=== PATIENT | female | born 1960 | race Caucasian/White ===

== ENCOUNTER → 2017-02-07 | Outpatient (CLI) | payer BC ==
[2017-02-07 11:11] LABS: Appearance,Urine Clear (Clear); Bilirubin,Urine Negative (Negative); Glucose,Urine (UA) Negative (Negative); Ketones,Urine Negative (Negative); Leukocyte Esterase,Urine Negative (Negative); Nitrite,Urine Negative (Negative); PH, Urine 5.5 (5.0-8.0); Protein,Urine Negative (Negative); UA Billing (MACRO vs. MICRO) CHEM; Urobilinogen,Urine <2.0 mg/dL (<2.0)
[2017-02-07 11:14] LABS: CH 30.6; CHCM 33.4; HDW 2.38; HGB 14.5 gm/dL (11.4-16.0); MCH 31.1 pg (25.0-35.0); MCHC 33.7 g/dL (31.0-37.0); MCV 92.1 fL (80.0-100.0); Mean Platelet Volume 7.3; RBC 4.67 m/uL (3.80-5.40); RDW 12.9 % (11.5-15.5); WBC 8.2 k/uL (3.8-10.6)
[2017-02-07 11:27] LABS: INR 1.1 (<1.2); Partial Thromboplastin Time 26.8 sec (22.0-30.0); Prothrombin Time 10.7 sec (9.0-12.0)
[2017-02-07 11:33] LABS: ALT 57 U/L (9-52); AST 33 U/L (14-36); Alkaline Phosphatase 106 U/L (38-126); Anion Gap 11 mmol/L; Blood Urea Nitrogen 18 mg/dL (7-17); Calcium 9.7 mg/dL (8.4-10.2); Carbon Dioxide 28 mmol/L (22-30); Chloride 102 mmol/L (98-107); Glucose 96 mg/dL (74-99); Non-African American GFR(MDRD) >60 (>60 ml/min/1.73 sqM); Potassium 4.8 mmol/L (3.5-5.1); Sodium 141 mmol/L (137-145); Total Bilirubin 0.6 mg/dL (0.2-1.3); Total Protein 7.7 g/dL (6.3-8.2)
== END | disposition home or self-care (01) ==
LOC: LABPAT 10:25
PROVIDERS: ATTEND Orthopaedic Surgery
DX: Z01.812 Encounter for preprocedural laboratory examination (principal)
CPT/HCPCS: 80053; 81003; 85027; 85610; 85730; 87070

== ENCOUNTER 2017-02-18 06:02 | Inpatient (IN) | payer BC ==
[2017-02-12 11:08] VITALS: BMI 25.7
[~2017-02-18 06:02] MED LIST: ACETAMINOPHEN TAB 500 MG TAB PO ONE; DEXAMETHASONE SOD PHOSPHATE 10 MG/ML 1 ML VIAL IV ONE; HYDROmorphone 1 MG/ML 1 ML SYRINGE IVP PRN; LACTATED RINGERS 1,000 ML IV SCH; MELOXICAM 7.5 MG TAB PO ONE; ONDANSETRON 4 MG/2 ML VIAL IVP ONE; TRANEXAMIC ACID 1,000 MG in SODIUM CHLORIDE 0.9% 100 ML IVPB ONE; ceFAZolin 2 GM in SODIUM CHLORIDE 0.9% 100 ML IVPB ONE
[2017-02-18] MEDS ORDERED: LIDOCAINE 1% 20 ML VIAL (10MG/ML) FOR IV START INTRADERMA ONE (06:47)
[2017-02-18] MEDS ORDERED: PROPOFOL 10 MG/ML 20 ML VIAL IV ONE (07:46)
[2017-02-18] MEDS ORDERED: LIDOCAINE 1% INJ 10MG/ML (20 ML MDV) ONE (07:46)
[2017-02-18] MEDS ORDERED: TRANEXAMIC ACID 1,000 MG/10 ML VIAL ONE (07:46)
[2017-02-18] MEDS ORDERED: fentaNYL (PF) 50 MCG/ML 2 ML AMP ONE (07:46)
[2017-02-18] MEDS ORDERED: ePHEDrine SULFATE/0.9% NACL/PF 50 MG/5 ML SYRINGE IV ONE (07:46)
[2017-02-18] MEDS ORDERED: MIDAZOLAM 2 MG/2 ML VIAL ONE (07:46)
[2017-02-18] MEDS ORDERED: SODIUM CHLORIDE 0.9% 100 ML BAG ONE (07:46)
[2017-02-18] MEDS: ROPIVACAINE 246.25 MG, EPINEPHrine 0.5 MG, KETOROLAC 30 MG, cloNIDine HCL/PF 80 MCG, WA... MISCELLANE ONE ×10 (08:20→08:47)
[2017-02-18] MEDS ORDERED: ceFAZolin 3,000 MG in SODIUM CHLORIDE 0.9% IRRIGATIO 3,000 ML IRRIGATION ONE (08:42)
[2017-02-18] MEDS ORDERED: MAGNESIUM HYDROXIDE 2,400 MG/10 ML CUP PO PRN (09:49)
[2017-02-18] MEDS ORDERED: NA PHOS,M-B/NA PHOS,DI-BA 133 ML ENEMA RECTAL PRN (09:49)
[2017-02-18] MEDS ORDERED: hydrOXYzine PAMOATE 25 MG CAP PO PRN (09:49)
[2017-02-18] MEDS ORDERED: ACETAMINOPHEN TAB 325 MG TAB PO PRN (09:49)
[2017-02-18] MEDS ORDERED: NALOXONE 0.4 MG/ML 1 ML VIAL IV PRN (09:49)
[2017-02-18] MEDS ORDERED: ONDANSETRON 4 MG/2 ML VIAL IVP PRN (09:49)
[2017-02-18] MEDS ORDERED: HYDROcodone/APAP 5-325MG 1 EACH TAB PO PRN (09:49)
[2017-02-18] MEDS ORDERED: BISACODYL 10 MG SUPP RECTAL PRN (09:49)
[2017-02-18] MEDS ORDERED: HYDROmorphone 1 MG/ML 1 ML SYRINGE IVP PRN ×3 (09:49)
--- NOTE | 2017-02-18 10:14 | P.OP ---
Date of Procedure: 02/18/17 Procedure(s) Performed: PREOPERATIVE DIAGNOSIS: Right knee severe osteoarthritis POSTOPERATIVE DIAGNOSIS: Right knee severe osteoarthritis OPERATION: Right knee cemented total replacement arthroplasty. ANESTHESIA: Spinal ESTIMATED BLOOD LOSS: 100 ml. GUEST SERVICES AMBASSADOR: Ann Pantoja PA-C (assistance with: patient positioning, retraction, exposure, hemostasis, leg positioning, implantation, irrigation, closure, dressing) COMPLICATIONS: None apparent. COMPONENTS IMPLANTED: Persona system from [employer] INDICATIONS: Coty is a 56-year-old female with a history of knee osteoarthritis. The patient's knee is end-stage, and conservative management has failed, including injections, physical therapy, lubricants, arthroscopy, and oral medications. The operation of knee replacement has been discussed at length in the office, as well as potential risks and complications. These are inclusive of, but not limited to: bleeding, infection, scarring, discomfort, blood vessel and nerve damage, need for further surgery, failure to relieve symptoms, persistence, recurrence, or worsening of problems, loosening, dislocation, wear, blood clot, pulmonary embolism, , gait dysfunction, stiffness, and other risks as discussed in the office. The patient elects to proceed and the consent form has been signed. PROCEDURE: The patient was taken to the operating room and positioned on the operating room table in the supine position. Anesthesia was initiated. Care was taken to make sure that all pressure points were adequately padded. The operative lower extremity was prepped and draped in the usual aseptic fashion using ChloraPrep. Ioban drape was used for the case and the patient received intravenous antibiotics within one hour of the incision. A pneumotourniquet and leg hyde were used for the case. The limb was exsanguinated with an Esmarch bandage and the tourniquet was inflated to 350 mmHg. Time-out was called confirming the patient's identity, side, procedure and administration of antibiotics. The incision was then created midline directly over the knee, carried down through skin and into the subcutaneous tissues and down to fascia. Full thickness subcutaneous medial flap was developed. Medial parapatellar arthrotomy was performed and the interior of the knee was inspected. There was end-stage osteoarthritis of the knee with a mild to moderate genu varum type deformity. The fat pad was excised and proximal medial release on the tibia was completed using meticulous dissection and a curved osteotome. The anterior cruciate ligament was taken down. Note was made of significant attrition of the anterior and significant degenerative appearance of the posterior cruciate ligaments. The exposure was excellent. The knee was flexed 90 degrees and the patella was everted. A spot was chosen on the femur approximately 1 cm anterior to the posterior cruciate ligament insertion and an intramedullary hole was created within the femur. The intramedullary guide was then set to 5 degrees of valgus. The distal cutting block was attached and pinned into position. An appropriate amount of distal femoral resection was set. The oscillating saw was then used to make the distal femoral cut. This cut was confirmed to be flat with the flat end of an osteotome. The retractors were placed around the tibia and the tibial surface was addressed. The angle and depth of resection was adjusted using an extramedullary cutting guide. The guide had a built-in 3 degree posterior slope cut. Once the cutting guide was adjusted appropriately and in line with the axis of the tibia and confirmed to be in good position in relation to the second metatarsal and transmalleolar axis, the tibial cut was then created with protection of the posterior neurovascular structures and the collateral ligaments. The tibial cut surface was removed and sized. Femoral sizing was then accomplished using anterior referencing. Care was taken to analyze the posterior condyles for signs of deficiency or severe wear, and adjustments to the guide were made, as appropriate. 3 degree external rotation pins were placed. The cutting jig for the femur was applied to these pins. The planned cuts were further analyzed prior to performing them with the oscillating saw. No femoral notching was produced. Bone fragments were removed and the cut surfaces were finished, as necessary, with a reciprocating saw. Spacer block technique was then used to confirm that the flexion and extension gaps were equal. Soft tissue releases and adjustment of the tibial and/or femoral cuts were made, as necessary, until the gaps were equal. This included release of the posterior cruciate ligament, which was tight in this patient and , if left unreleased, would have resulted in poor kinematics and possibly early loosening. The femur was then further finished for a posterior cruciate ligament substituting component. Patellar resurfacing was performed using a reamer. The size of the required patellar component was estimated and the patellar surface was then reamed down to a residual thickness which would recreate the [facility] thickness with the component. The placement of the patellar component was influenced by the degree of patellar subluxation, if any, noted on the preoperative x-rays. Prior to placing trial components, anesthetic solution consisting of ropivicaine with epinephrine, ketorolac, and clonidine was injected carefully and methodically in a grid pattern using aspiration technique into the soft tissue around the knee circumferentially, starting with the deeper tissues first and progressing to fascia, and then finally the skin/subcutaneous tissue. Particular care was taken when injecting the posterior capsule. The trial components were inserted. The tibial tray was allowed to self center and the patella was noted to track very well. The position of the tibial component was marked and the tibia was then finished for a stemmed tibial component. Cement was mixed on the back table and applied to the final components. Trial components were removed and the cut surfaces of the bone were pulse lavaged thoroughly and dried. Cement was then applied to the tibial surface and pressurized into the surface using finger pressurization technique. The tibial component was then applied and excess cement was removed after it was impacted securely and noted to be flush with the cut surface. In similar fashion, the cement was applied to the cut femoral surface, pressurized in using finger pressurization and the component was impacted into place. Excess cement was removed. The polyethylene spacer was then implanted and locked into position. The patellar component was then applied in similar technique and a patellar clamp was used to hold the patella in place as the cement hardened. Once the cement had fully hardened, the knee was reinspected. Any other cement extrusion was removed and final kinematic testing showed range of motion from 0 to 130 degrees with excellent stability, both medially and laterally and appropriate alignment of the leg. Patellar tracking was excellent. The knee was then thoroughly pulse lavaged with normal saline. The tourniquet was deflated and hemostasis was obtained with electrocautery and IV tranexamic acid, 1 g given at the start of the operation and 1 g at the start of closure. Closure was with #2 Ethibond in the fascia/capsule and supplemented with #2 Quill, 2-0 Vicryl suture was used for the subcutaneous tissues and 3-0 Quill for the skin. Dermabond/Steri-Strips were then applied. A lightly compressive dressing was applied using Webril and an Tariq wrap. The patient was then transferred to stretcher and taken to the recovery room in stable condition. Sponge and needle counts were correct.
--- NOTE | 2017-02-18 10:48 | XR ---
EXAMINATION TYPE: XR knee limited RT DATE OF EXAM: 02/18/2017 COMPARISON: NONE HISTORY: 56-year-old female evaluation for postoperative abnormality and alignment TECHNIQUE: 2 views FINDINGS: Images show placement of right total knee arch plasty. Both distal femoral and proximal tibial compon ents of the prosthesis are well seated without periprosthetic fracture. Alignment is grossly anatomic . Anterior soft tissue swelling as well as scattered soft tissue air and intra-articular air compatib le with recent operation. IMPRESSION: Uncomplicated postoperative appearance right total knee arthroplasty.
[2017-02-18] MEDS: LACTATED RINGERS 1,000 ML IV SCH ×3 (11:04→22:42)
--- NOTE | 2017-02-18 12:34 | P.CONS ---
History of Present Illness - Reason for Consult Preoperative combination management. - History of Present Illness 56-year-old present female with no significant known medical problems came in for elective right knee arthroplasty patient successfully underwent surgery did not pass gas yet denied any pain as I saw her in the immediate postoperative period. Patient has history of heart murmur secondary to bicuspid aortic valve without any symptoms from that, no eye headache stenosis from that patient only has hyperlipidemia. Patient denied any dysuria cough runny nose. Review of Systems REVIEW OF SYSTEMS: CONSTITUTIONAL: No fever, no malaise, no fatigue. HEENT: No recent visual problems or hearing problems. Denied any sore throat. CARDIOVASCULAR: No chest pain, orthopnea, PND, no palpitations, no syncope. PULMONARY: No shortness of breath, no cough, no hemoptysis. GASTROINTESTINAL: No diarrhea, no nausea, no vomiting, no abdominal pain. Normoactive bowel sounds. NEUROLOGICAL: No headaches, no weakness, no numbness. HEMATOLOGICAL: Denies any bleeding or petechiae. GENITOURINARY: Denies any burning micturition, frequency, or urgency. MUSCULOSKELETAL/RHEUMATOLOGICAL: Denies any joint pain, swelling, or any muscle pain. ENDOCRINE: Denies any polyuria or polydipsia. The rest of the 14-point review of systems is negative. Past Medical History Past Medical History: GERD/Reflux, Hyperlipidemia, Osteoarthritis (OA) Additional Past Medical History / Comment(s): heart murmer, History of Any Multi-Drug Resistant Organisms: None Reported Past Surgical History: Adenoidectomy, Hysterectomy, Orthopedic Surgery, Tonsillectomy Additional Past Surgical History / Comment(s): arthroscopy rt knee, great saphenous vein surgery-augie Past Anesthesia/Blood Transfusion Reactions: No Reported Reaction Past Psychological History: No Psychological Hx Reported Smoking Status: Never smoker Past Alcohol Use History: Occasional Past Drug Use History: None Reported - Past Family History Mother Family Medical History: Cancer Additional Family Medical History / Comment(s): breast,bowel Medications and Allergies Home Medications Medication Instructions Recorded Confirmed Type Atorvastatin [Lipitor] 40 mg PO HS 02/12/17 02/18/17 History Cholecalciferol [Vitamin D3] 4,000 unit PO HS 02/12/17 02/18/17 History Aspirin 325 mg PO BID #120 tab 02/18/17 Rx HYDROcodone/APAP 5-325MG [[place] 1 - 2 each PO Q4-6H PRN #90 tab 02/18/17 Rx 5-325] Sennosides-Docusate Sodium 1 tab PO BID #60 tablet 02/18/17 Rx [Senokot-S] Allergies Allergy/AdvReac Type Severity Reaction Status Date / Time No Known Allergies Allergy Verified 02/18/17 10:41 Physical Exam Vitals: Vital Signs Temp Pulse Pulse Resp BP Pulse Ox 02/18/17 12:15 77 119/60 02/18/17 12:00 69 124/77 02/18/17 11:30 60 113/73 02/18/17 11:15 54 L 115/71 02/18/17 11:00 55 L 109/70 02/18/17 10:45 55 L 119/68 02/18/17 10:30 62 112/69 02/18/17 10:16 53 L 16 106/59 94 L 02/18/17 10:15 62 104/56 02/18/17 10:00 98.7 F 56 L 53 L 16 104/55 97 02/18/17 09:47 97.0 F L 69 16 103/52 93 L 02/18/17 06:28 97.7 F 64 16 146/71 98 Intake and Output 02/17/17 02/18/17 02/18/17 22:59 06:59 14:59 Intake Total 500 1350 Output Total 50 Balance 500 1300 Intake: IV 500 1350 Output: Estimated Blood Loss 50 Other: Weight 83.915 kg Patient Weight 02/19/17 06:59 Weight 83.915 kg PHYSICAL EXAMINATION: GENERAL: The patient is alert and oriented x3, not in any acute distress. Well developed, well nourished. HEENT: Pupils are round and equally reacting to light. EOMI. No scleral icterus. No conjunctival pallor. Normocephalic, atraumatic. No pharyngeal erythema. No thyromegaly. CARDIOVASCULAR: S1 and S2 present. No murmurs, rubs, or gallops. PULMONARY: Chest is clear to auscultation, no wheezing or crackles. ABDOMEN: Soft, nontender, nondistended, normoactive bowel sounds. No palpable organomegaly. MUSCULOSKELETAL: Deferred to arthritic surgery. EXTREMITIES: No cyanosis, clubbing, or pedal edema. NEUROLOGICAL: Gross neurological examination did not reveal any focal deficits. SKIN: No rashes. Assessment and Plan Plan: #1 right knee arthroplasty: Status post surgery postoperative day 0 pain management and DVT prophylaxis per primary service. No evidence of any postoperative consultations at this time. #2 bicuspid aortic valve: No further intervention being followed as an outpatient. #3 hyperlipidemia continue with the her statin. We will follow the patient on as-needed basis. Thank you for letting me partis with the patient's care
[2017-02-18] MEDS ORDERED: ACETAMINOPHEN TAB 500 MG TAB PO PRN (15:25)
[2017-02-18] MEDS: ceFAZolin 2 GM in SODIUM CHLORIDE 0.9% 100 ML IVPB SCH ×2 (17:28→23:31)
[2017-02-18] MEDS ORDERED: ATORVASTATIN 40 MG TAB PO SCH (21:00)
[2017-02-18] MEDS ORDERED: SENNOSIDES-DOCUSATE SODIUM 1 EACH TAB PO SCH (21:00)
[2017-02-18] MEDS ORDERED: ASPIRIN 325 MG TAB PO SCH (21:00)
[2017-02-18] MEDS ORDERED: TEMAZEPAM 15 MG CAP PO PRN (22:00)
[2017-02-19] MEDS: HYDROcodone/APAP 5-325MG 1 EACH TAB PO PRN ×2 (07:42→14:07)
[2017-02-19 08:04] LABS: Basophils % (A) 0 %; CH 30.5; CHCM 33.4; Eosinophils % (A) 1 %; HCT 33.7 % (34.0-46.0); HDW 2.37; Luc # (Auto) 0.09; Luc % (Auto) 1; Lymphocytes # (A) 1.4 k/uL (1.0-4.8); Lymphocytes % (A) 17 %; MCH 31.3 pg (25.0-35.0); MCHC 34.2 g/dL (31.0-37.0); MCV 91.8 fL (80.0-100.0); Mean Platelet Volume 7.9; Monocytes # (A) 0.6 k/uL (0-1.0); Monocytes % (A) 8 %; Neutrophils # (A) 6.1 k/uL (1.3-7.7); Neutrophils % (A) 74 %; RBC 3.67 m/uL (3.80-5.40); RDW 12.9 % (11.5-15.5); WBC 8.3 k/uL (3.8-10.6); WBC (Perox) 8.75
[2017-02-19 08:15] LABS: HGB 11.5 gm/dL (11.4-16.0)
[2017-02-19] MEDS ORDERED: ASPIRIN 325 MG TAB PO SCH (09:00)
[2017-02-19] MEDS ORDERED: MELOXICAM 7.5 MG TAB PO SCH (09:00)
--- NOTE | 2017-02-19 09:13 | P.DS ---
Providers Date of admission: 02/18/17 06:02 Expected date of discharge: 02/19/17 Attending physician: Frankie Rebolledo Consults: 02/18/17 09:49 Consult Physician Routine Consulting Provider: Katie Bansal Consult Reason/Comments: medical management Do you want consulting provider notified?: Yes Primary care physician: Stated None - Discharge Diagnosis(es) (1) Osteoarthritis of right knee Current Visit: Yes Status: Acute (2) Status post right knee replacement Current Visit: Yes Status: Acute Hospital Course: This is a pleasant 56-year-old female last seen in our office with complaints of right knee pain. Patient has known history of degenerative arthritis of the right knee and presented to discuss options. After discussion and consideration , patient elected to proceed with a total knee arthroplasty of the right knee. The patient was seen preoperatively and medically cleared for surgery by Dr. Baum. The patient was admitted to [facility] and underwent right total knee arthroplasty on 02/18/[address] Rebolledo. The procedure was performed without complications or sequelae. The patient has done well postoperatively. The patient was seen and evaluated at bedside today and denies any new complaints. Pain is reasonably controlled. Dressing is clean dry and intact. Incision looks fine with no erythema or active drainage. Calf is soft and nontender. The patient has full foot and ankle motion without difficulty. Patient's right lower extremity is neurovascular intact. Patient is orthopedically stable for discharge to home today. Pertinent Studies: Laboratory Tests 02/19/17 07:32 WBC 8.3 RBC 3.67 L Hgb 11.5 D Hct 33.7 L Patient Condition at Discharge: Stable Plan - Discharge Summary New Discharge Prescriptions: New Aspirin 325 mg PO BID #120 tab HYDROcodone/APAP 5-325MG [[place] 5-325] 1 - 2 each PO Q4-6H PRN #90 tab PRN Reason: Pain Sennosides-Docusate Sodium [Senokot-S] 1 tab PO BID #60 tablet No Action Cholecalciferol [Vitamin D3] 4,000 unit PO HS Atorvastatin [Lipitor] 40 mg PO HS Discharge Medication List Atorvastatin [Lipitor] 40 mg PO HS 02/12/17 [History] Cholecalciferol [Vitamin D3] 4,000 unit PO HS 02/12/17 [History] Aspirin 325 mg PO BID #120 tab 02/18/17 [Rx] HYDROcodone/APAP 5-325MG [[place] 5-325] 1 - 2 each PO Q4-6H PRN #90 tab 02/18/17 [Rx] Sennosides-Docusate Sodium [Senokot-S] 1 tab PO BID #60 tablet 02/18/17 [Rx] Follow up Appointment(s)/Referral(s): Ann Pantoja, PAC [PHYSICIAN QUALITY ASSURANCE/R&D LAB TECHNICIAN] - 2 Weeks Ambulatory/Diagnostic Orders: Continuous Passive Motion (CPM) Machine [DME.AMB1] Time Frame: 3 Weeks, Facility : [facility], Location: Case Management Activity/Diet/Wound Care/Special Instructions: May bear wt as tolerated w walker. May shower if no drainage from incision. CPM 5-6h daily. Discharge Disposition: HOME WITH HOME HEALTH SERVICES
[2017-02-19] MEDS ORDERED: MULTIVITAMINS, THERA 1 EACH TAB PO SCH (12:00)
[2017-02-19 15:32] VITALS: BP 114/61; PULSE 70; RESP 16; TEMP 97.1
== END 2017-02-19 18:00 | disposition home health service (06) | DRG 470 ==
LOC: 2ORMAIN 06:02 → 3SUR 09:45
PROVIDERS: ADMIT Orthopaedic Surgery; ATTEND Orthopaedic Surgery
PROC: 0SRC0J9 Replacement of Right Knee Joint with Synthetic Substitute, Cemented, Open Approach (ICD-10-PCS; principal; 2017-02-18 07:30)
DX: M17.11 Unilateral primary osteoarthritis, right knee (principal); E78.5 Hyperlipidemia, unspecified; Z79.899 Other long term (current) drug therapy; K21.9 Gastro-esophageal reflux disease without esophagitis; M21.161 Varus deformity, not elsewhere classified, right knee; Z79.82 Long term (current) use of aspirin
CPT/HCPCS: 85025; 88300

== ENCOUNTER → 2017-12-19 | Outpatient (CLI) | payer BC ==
--- NOTE | 2018-01-01 09:00 | MM ---
Reason for exam: screening (asymptomatic). Last mammogram was performed 7 years and 10 months ago. History: Family history of breast cancer in maternal aunt and premenopausal breast cancer in mother at age 59. Benign US left guided VAD of the left breast, June 20, 2009. Benign US right guided VAD of the right breast, June 20, 2009. Benign right US cyst aspiration of the right breast, November 26, 2008. Benign US right guided VAD of the right breast, November 26, 2008. Benign US left CoreBiopsy of both breasts, August 18, 2008. Benign cyst aspiration of the left breast, 2000. Took hormonal contraceptives for 5 years beginning at age 24. Physical Findings: A clinical breast exam by your physician is recommended on an annual basis and results should be correlated with mammographic findings. MG 3D Screening Mammo W/Cad Bilateral CC and MLO view(s) were taken. Technologist: RT Maurice (R)(M) Prior study comparison: March 02, 2010, bilateral diagnostic digital mammog. February 22, 2009, bilateral diagnostic digital mammog. The breast tissue is heterogeneously dense. This may lower the sensitivity of mammography. Multiple right breast biopsy markers noted. Left biopsy markers also present. No significant changes when compared with prior studies. ASSESSMENT: Negative, BI-RAD 1 RECOMMENDATION: Routine screening mammogram of both breasts in 1 year.
== END | disposition home or self-care (01) ==
LOC: RADMAMWWP 07:09
PROVIDERS: ATTEND Obstetrics & Gynecology
DX: Z12.31 Encounter for screening mammogram for malignant neoplasm of breast (principal)
CPT/HCPCS: 77063; 77067

== ENCOUNTER → 2017-12-20 | Day surgery (SDC) | payer BC ==
[2017-12-18 08:20] VITALS: BMI 26.1
[~2017-12-20] MED LIST changes: -ACETAMINOPHEN TAB 500 MG TAB PO ONE; -DEXAMETHASONE SOD PHOSPHATE 10 MG/ML 1 ML VIAL IV ONE; -HYDROmorphone 1 MG/ML 1 ML SYRINGE IVP PRN; +LIDOCAINE 1% 20 ML VIAL (10MG/ML) FOR IV START INTRADERMA PRN; -MELOXICAM 7.5 MG TAB PO ONE; -ONDANSETRON 4 MG/2 ML VIAL IVP ONE; +PROPOFOL 10 MG/ML 20 ML VIAL IV ONE; -TRANEXAMIC ACID 1,000 MG in SODIUM CHLORIDE 0.9% 100 ML IVPB ONE; -ceFAZolin 2 GM in SODIUM CHLORIDE 0.9% 100 ML IVPB ONE
[2017-12-20 11:54] VITALS: TEMP 97.6
--- NOTE | 2017-12-20 13:37 | P.PCN ---
Date of Procedure: 12/20/17 Procedure(s) Performed: BRIEF HISTORY: Patient is a 57-year-old pleasant white female, scheduled for an elective colonoscopy as a part of variation of prior history of colon polyps and family history of colon cancer. Her sister was recently diagnosed with colon cancer at age 55. PROCEDURE PERFORMED: Colonoscopy. PREOPERATIVE DIAGNOSIS: History of colon polyps and family history of colon cancer. IV sedation per Anesthesia. PROCEDURE: After informed consent was obtained, the patient, was brought into the endoscopy unit. IV sedation was administered by Anesthesia under continuous monitoring. Digital rectal examination was normal. Initially the Olympus CF- 160 flexible video colonoscope was then inserted in the rectum, gradually advanced into the cecum without any difficulty. Careful examination was performed as the scope was gradually being withdrawn. Ileocecal valve and the appendiceal orifice were visualized and appeared normal. Prep was excellent. Mucosa of the cecum, ascending colon, transverse colon, descending colon, sigmoid colon, and rectum appeared normal. Retroflexion was performed in the rectum and no lesions were seen. The patient tolerated the procedure well. IMPRESSION: Normal-appearing colon from rectum to cecum with no evidence of colorectal neoplasia . RECOMMENDATIONS: Findings of this examination were discussed with the patient and family. She was advised to have a repeat surveillance colonoscopy in 5 years from now because of prior history of colon polyps and family history of colon cancer..
[2017-12-20 13:41] VITALS: RESP 16
[2017-12-20 13:48] VITALS: BP 112/67; PULSE 49
== END ==
LOC: ORWHC2ENDO 11:17
PROVIDERS: ATTEND Internal Medicine Gastroenterology
DX: Z12.11 Encounter for screening for malignant neoplasm of colon (principal); Z86.010 Personal history of colon polyps; Z80.0 Family history of malignant neoplasm of digestive organs; E78.5 Hyperlipidemia, unspecified; Z79.899 Other long term (current) drug therapy
CPT/HCPCS: J2704; G0105

== ENCOUNTER → 2019-01-08 | Outpatient (CLI) | payer BC ==
--- NOTE | 2019-01-08 13:32 | MM ---
Reason for exam: screening (asymptomatic). Last mammogram was performed 1 year and 1 month ago. History: Family history of breast cancer in maternal aunt and premenopausal breast cancer in mother at age 59. Benign US left guided VAD of the left breast, June 20, 2009. Benign US right guided VAD of the right breast, June 20, 2009. Benign right US cyst aspiration of the right breast, November 26, 2008. Benign US right guided VAD of the right breast, November 26, 2008. Benign US left CoreBiopsy of both breasts, August 18, 2008. Benign cyst aspiration of the left breast, 2000. Took hormonal contraceptives for 5 years beginning at age 24. Physical Findings: A clinical breast exam by your physician is recommended on an annual basis and results should be correlated with mammographic findings. MG 3D Screening Mammo W/Cad Bilateral CC and MLO view(s) were taken. Prior study comparison: December 19, 2017, bilateral MG 3d screening mammo w/cad. March 02, 2010, bilateral diagnostic digital mammog. The breast tissue is heterogeneously dense. This may lower the sensitivity of mammography. There are benign appearing round calcifications bilaterally. Previous mammotome biopsy in the right breast x 3 and in the left breast. There is chronic nodularity bilaterally. There is no discrete abnormality. ASSESSMENT: Benign, BI-RAD 2 RECOMMENDATION: Routine screening mammogram of both breasts in 1 year.
== END | disposition home or self-care (01) ==
LOC: RADMAMWWP 07:01
PROVIDERS: ATTEND Obstetrics & Gynecology
DX: Z12.31 Encounter for screening mammogram for malignant neoplasm of breast (principal)
CPT/HCPCS: 77063; 77067

== ENCOUNTER 2019-03-05 14:54 | Observation (INO) | payer BC ==
[2019-03-05] MEDS ORDERED: SODIUM CHLORIDE 0.9% 500 ML 500 ML IV STA (15:06)
[2019-03-05] MEDS ORDERED: SODIUM CHLORIDE 0.9% 1,000 ML IV STA (15:06)
--- NOTE | 2019-03-05 15:58 | ED ---
General Adult HPI - General Source: patient, RN notes reviewed Mode of arrival: ambulatory Limitations: no limitations <Ishmael Del Valle - Last Filed: 03/05/19 15:53> <Mae Desai - Last Filed: 03/10/19 12:38> - General Chief complaint: Nausea/Vomiting/Diarrhea Stated complaint: Diarrhea Time Seen by Provider: 03/05/19 15:06 - History of Present Illness Initial comments: 58-year-old female presents emergency Department with chief complaint of diarrhea, bloody stools and cough and congestion. Patient states his symptoms started on Saturday with which seemed to be just URI symptoms states that she had a cough and low-grade temp. Patient states she's felt chills. Patient states that she now developed diarrhea and which is excessive diarrhea. Patient states the point where she been having bloody loose stools. Patient states that she has had a colonoscopy in the past which is unremarkable. No history of light is her ulcerative colitis or any known IBD. Patient family history doesn't support this. Patient denies any dysuria. Patient is in no sick contacts no recent traveling. Patient denies any current vomiting. Patient does not take any blood thinners. (Ishmael Del Valle) - Related Data Home Medications Medication Instructions Recorded Confirmed Atorvastatin [Lipitor] 40 mg PO HS 02/12/17 03/05/19 Cholecalciferol [Vitamin D3 (25 4,000 unit PO HS 02/12/17 03/05/19 Mcg = 1000 Iu)] Multivitamins, Thera [Multivitamin 1 tab PO HS 03/05/19 03/05/19 (formulary)] Previous Rx's Medication Instructions Recorded Amoxic-Pot Clav 500-125 mg 1 each PO BID #10 tab 03/06/19 [Augmentin 500-125 mg] Allergies Allergy/AdvReac Type Severity Reaction Status Date / Time No Known Allergies Allergy Verified 03/05/19 18:23 Review of Systems ROS Other: All systems not noted in ROS Statement are negative. <Ishmael Del Valle - Last Filed: 03/05/19 15:53> ROS Other: All systems not noted in ROS Statement are negative. <Mae Desai - Last Filed: 03/10/19 12:38> ROS Statement: Those systems with pertinent positive or pertinent negative responses have been documented in the HPI. Past Medical History Past Medical History: Hyperlipidemia Additional Past Medical History / Comment(s): heart murmur, History of Any Multi-Drug Resistant Organisms: None Reported Past Surgical History: Adenoidectomy, Hysterectomy, Joint Replacement, Orthopedic Surgery, Tonsillectomy Additional Past Surgical History / Comment(s): arthroscopy rt knee, great saphenous vein surgery-augie, RT TKA 02/18/17 Past Anesthesia/Blood Transfusion Reactions: No Reported Reaction Past Psychological History: No Psychological Hx Reported Smoking Status: Never smoker Past Alcohol Use History: None Reported, Occasional Past Drug Use History: None Reported - Past Family History Mother Family Medical History: Cancer Additional Family Medical History / Comment(s): breast,bowel <Ishmael Del Valle - Last Filed: 03/05/19 15:53> General Exam Limitations: no limitations General appearance: alert, in no apparent distress Head exam: Present: atraumatic, normocephalic, normal inspection ENT exam: Present: normal exam, normal oropharynx, mucous membranes moist Neck exam: Present: normal inspection. Absent: tenderness, meningismus, lymphadenopathy Respiratory exam: Present: wheezes. Absent: normal lung sounds bilaterally, respiratory distress, rales, rhonchi, stridor Cardiovascular Exam: Present: regular rate, normal rhythm, normal heart sounds. Absent: systolic murmur, diastolic murmur, rubs, gallop, clicks GI/Abdominal exam: Present: soft, normal bowel sounds. Absent: distended, tende rness, guarding, rebound, rigid <Ishmael Del Valle - Last Filed: 03/05/19 15:53> Course Vital Signs 03/05/19 03/05/19 15:01 19:00 Temperature 98 F Pulse Rate 87 68 Respiratory 20 18 Rate Blood Pressure 158/91 155/93 O2 Sat by Pulse 99 98 Oximetry Medical Decision Making - Lab Data Result diagrams: 03/06/19 07:15 03/06/19 07:15 <Mae Desai - Last Filed: 03/10/19 12:38> - Medical Decision Making Upon arrival the patient was placed into room 23. A thorough history and physical exam was performed by the midlevel provider. Upon return results they were discussed with the patient. The case is signed out to me pending CT read. CBC and coags were unremarkable. Chemistry did demonstrate an AST of 87 and ALP of 172. I did order stool studies however the patient's unable to provide one. Review the patient's CT abdomen demonstrates patchy consolidations and groundglass opacities in the right lower lobe. States also trace pleural effusions. Fluid and gas filled small bowel loops. Review of the patient's chest x-ray demonstrates right lower lobe pneumonia. Blood cultures were obtained. I did give the patient a dose of Rocephin and azithromycin. Because she is reporting bloody stools, I recommended overnight observation. I did call and discuss the case with Dr. Pandya who accepted admission of the patient. I'll place GI consult. The patient is instructed to provide a stool sample when she is able to give one. The patient was then transferred to the floor in stable condition (Mae Desai) - Lab Data Lab Results 03/05/19 03/05/19 03/05/19 Range/Units 15:47 15:47 15:47 WBC 4.9 (3.8-10.6) k/uL RBC 4.59 (3.80-5.40) m/uL Hgb 13.6 (11.4-16.0) gm/dL Hct 42.3 (34.0-46.0) % MCV 92.3 (80.0-100.0) fL MCH 29.7 (25.0-35.0) pg MCHC 32.2 (31.0-37.0) g/dL RDW 12.9 (11.5-15.5) % Plt Count 225 (150-450) k/uL Neutrophils % 64 % Lymphocytes % 20 % Monocytes % 9 % Eosinophils % 3 % Basophils % 1 % Neutrophils # 3.1 (1.3-7.7) k/uL Lymphocytes # 1.0 (1.0-4.8) k/uL Monocytes # 0.4 (0-1.0) k/uL Eosinophils # 0.1 (0-0.7) k/uL Basophils # 0.1 (0-0.2) k/uL PT (9.0-12.0) sec INR (<1.2) APTT (22.0-30.0) sec Sodium 141 (137-145) mmol/L Potassium 4.0 (3.5-5.1) mmol/L Chloride 102 (98-107) mmol/L Carbon Dioxide 26 (22-30) mmol/L Anion Gap 13 mmol/L BUN 10 (7-17) mg/dL Creatinine 0.63 (0.52-1.04) mg/dL Est GFR (CKD-EPI)AfAm >90 (>60 ml/min/1.73 sqM) Est GFR (CKD-EPI)NonAf >90 (>60 ml/min/1.73 sqM) Glucose 112 H (74-99) mg/dL Plasma Lactic Acid Sachin (0.7-2.0) mmol/L Calcium 9.3 (8.4-10.2) mg/dL Total Bilirubin 0.3 (0.2-1.3) mg/dL AST 87 H (14-36) U/L ALT 172 H (9-52) U/L Alkaline Phosphatase 160 H (38-126) U/L Total Protein 7.7 (6.3-8.2) g/dL Albumin 4.3 (3.5-5.0) g/dL Amylase 44 (30-110) U/L Lipase 99 (23-300) U/L Urine Color Yellow Urine Appearance Clear (Clear) Urine pH 5.5 (5.0-8.0) Ur Specific [place] 1.018 (1.001-1.035) Urine Protein Trace H (Negative) Urine Glucose (UA) Negative (Negative) Urine Ketones Negative (Negative) Urine Blood Trace H (Negative) Urine Nitrite Negative (Negative) Urine Bilirubin Negative (Negative) Urine Urobilinogen <2.0 (<2.0) mg/dL Ur Leukocyte Esterase Negative (Negative) Urine RBC 1 (0-5) /hpf Urine WBC 2 (0-5) /hpf Ur Squamous Epith Cells 11 H (0-4) /hpf Amorphous Sediment Rare H (None) /hpf Urine Bacteria Rare H (None) /hpf Urine Mucus Rare H (None) /hpf 03/05/19 03/05/19 Range/Units 15:47 15:47 WBC (3.8-10.6) k/uL RBC (3.80-5.40) m/uL Hgb (11.4-16.0) gm/dL Hct (34.0-46.0) % MCV (80.0-100.0) fL MCH (25.0-35.0) pg MCHC (31.0-37.0) g/dL RDW (11.5-15.5) % Plt Count (150-450) k/uL Neutrophils % % Lymphocytes % % Monocytes % % Eosinophils % % Basophils % % Neutrophils # (1.3-7.7) k/uL Lymphocytes # (1.0-4.8) k/uL Monocytes # (0-1.0) k/uL Eosinophils # (0-0.7) k/uL Basophils # (0-0.2) k/uL PT 10.9 (9.0-12.0) sec INR 1.0 (<1.2) APTT 26.2 (22.0-30.0) sec Sodium (137-145) mmol/L Potassium (3.5-5.1) mmol/L Chloride (98-107) mmol/L Carbon Dioxide (22-30) mmol/L Anion Gap mmol/L BUN (7-17) mg/dL Creatinine (0.52-1.04) mg/dL Est GFR (CKD-EPI)AfAm (>60 ml/min/1.73 sqM) Est GFR (CKD-EPI)NonAf (>60 ml/min/1.73 sqM) Glucose (74-99) mg/dL Plasma Lactic Acid [place] 1.2 (0.7-2.0) mmol/L Calcium (8.4-10.2) mg/dL Total Bilirubin (0.2-1.3) mg/dL AST (14-36) U/L ALT (9-52) U/L Alkaline Phosphatase (38-126) U/L Total Protein (6.3-8.2) g/dL Albumin (3.5-5.0) g/dL Amylase (30-110) U/L Lipase (23-300) U/L Urine Color Urine Appearance (Clear) Urine pH (5.0-8.0) Ur Specific [place] (1.001-1.035) Urine Protein (Negative) Urine Glucose (UA) (Negative) Urine Ketones (Negative) Urine Blood (Negative) Urine Nitrite (Negative) Urine Bilirubin (Negative) Urine Urobilinogen (<2.0) mg/dL Ur Leukocyte Esterase (Negative) Urine RBC (0-5) /hpf Urine WBC (0-5) /hpf Ur Squamous Epith Cells (0-4) /hpf Amorphous Sediment (None) /hpf Urine Bacteria (None) /hpf Urine Mucus (None) /hpf Disposition <Ishmael Del Valle - Last Filed: 03/05/19 15:53> Is patient prescribed a controlled substance at d/c from ED?: No Time of Disposition: 20:12 <Mae Desai - Last Filed: 03/10/19 12:38> Clinical Impression: Community acquired bacterial pneumonia, Hematochezia Disposition: ADMITTED IP TO THIS HOSP Condition: Stable
[2019-03-05 16:00] LABS: Basophils # (A) 0.1 k/uL (0-0.2); Basophils % (A) 1 %; Eosinophils # (A) 0.1 k/uL (0-0.7); Eosinophils % (A) 3 %; HCT 42.3 % (34.0-46.0); HGB 13.6 gm/dL (11.4-16.0); Lymphocytes % (A) 20 %; MCH 29.7 pg (25.0-35.0); MCHC 32.2 g/dL (31.0-37.0); MCV 92.3 fL (80.0-100.0); Mean Platelet Volume 7.1; Monocytes # (A) 0.4 k/uL (0-1.0); Monocytes % (A) 9 %; Neutrophils # (A) 3.1 k/uL (1.3-7.7); Neutrophils % (A) 64 %; Platelet Count 225 k/uL (150-450); RBC 4.59 m/uL (3.80-5.40); RDW 12.9 % (11.5-15.5); WBC 4.9 k/uL (3.8-10.6)
[2019-03-05 16:09] LABS: Amorphous Sediment,Urine Rare /hpf; Appearance,Urine Clear (Clear); Bacteria,Urine Rare /hpf; Bilirubin,Urine Negative (Negative); Blood,Urine Trace (Negative); Color,Urine Yellow; Glucose,Urine (UA) Negative (Negative); Ketones,Urine Negative (Negative); Leukocyte Esterase,Urine Negative (Negative); Mucus,Urine Rare /hpf; Nitrite,Urine Negative (Negative); PH, Urine 5.5 (5.0-8.0); Protein,Urine Trace (Negative); RBC,Urine 1 /hpf (0-5); Specific Gravity,Urine 1.018 (1.001-1.035); Squamous Epithelial Cell,Urine 11 /hpf (0-4); Urobilinogen,Urine <2.0 mg/dL (<2.0); WBC,Urine 2 /hpf (0-5)
[2019-03-05 16:11] LABS: ALT 172 U/L (9-52); AST 87 U/L (14-36); African American GFR (CKD) >90 (>60 ml/min/1.73 sqM); Albumin 4.3 g/dL (3.5-5.0); Alkaline Phosphatase 160 U/L (38-126); Amylase 44 U/L (30-110); Anion Gap 13 mmol/L; Blood Urea Nitrogen 10 mg/dL (7-17); Calcium 9.3 mg/dL (8.4-10.2); Carbon Dioxide 26 mmol/L (22-30); Chloride 102 mmol/L (98-107); Glucose 112 mg/dL (74-99); Non-African American GFR(CKD) >90 (>60 ml/min/1.73 sqM); Sodium 141 mmol/L (137-145); Total Bilirubin 0.3 mg/dL (0.2-1.3); Total Protein 7.7 g/dL (6.3-8.2)
[2019-03-05 16:13] LABS: Partial Thromboplastin Time 26.2 sec (22.0-30.0); Prothrombin Time 10.9 sec (9.0-12.0)
--- NOTE | 2019-03-05 18:58 | CT ---
EXAM: CT Abdomen and Pelvis With Intravenous Contrast CLINICAL HISTORY: ITS.REASON CT Reason: diarrhea, bloody stools TECHNIQUE: Axial computed tomography images of the abdomen and pelvis with intravenous contrast. CTDI is 21.17 mGy and DLP is 992 mGy-cm. This CT exam was performed using one or more of the following dose reduction techniques: automated exposure control, adjustment of the mA and/or kV according to patient size, and/or use of iterative reconstruction technique. COMPARISON: None FINDINGS: Liver: Normal. No focal lesion. Spleen: Normal. No focal lesion. Gallbladder: Cholelithiasis. Pancreas: Normal. No acute inflammation. No mass. Adrenal glands: Normal. No mass. Kidneys: Normal. No hydronephrosis or stone. No mass. Bowel: Decompressed sigmoid colon and descending colon. Normal appendix. Fluid and gas-filled small bowel loops are nonspecific but may represent enteritis or ileus. No bowel obstruction or inflammation. Urinary bladder: Under distended bladder. Reproductive organs: Prior hysterectomy. Muscles: No mass. Subcutaneous tissues: Normal. Peritoneal space: Normal. No free fluid. Lymph nodes: Small mesenteric lymph nodes are nonspecific but may be reactive. Vessels: Normal. No aneurysm or dissection. Bones: No acute fracture or bony lesion. Lung bases: Patchy consolidations and ground-glass opacities in the right lower lobe, concerning for pneumonia. Trace right pleural effusion. IMPRESSION: 1. Patchy consolidations and ground-glass opacities in the right lower lobe, concerning for pneumonia. Trace right pleural effusion. 2. Fluid and gas-filled small bowel loops are nonspecific but may represent enteritis or ileus.
[2019-03-05] MEDS ORDERED: cefTRIAXone IN SWFI 1,000 MG/10 ML SYRINGE IVP STA (19:19)
[2019-03-05] MEDS ORDERED: AZITHROMYCIN 500 MG in SODIUM CHLORIDE 0.9% 250 ML IVPB STA (19:19)
[2019-03-05] MEDS ORDERED: NALOXONE 0.4 MG/ML 1 ML VIAL IV PRN (20:07)
[2019-03-05] MEDS: SODIUM CHLORIDE 0.9% 1,000 ML IV SCH (20:17)
[2019-03-05] MEDS ORDERED: ATORVASTATIN 40 MG TAB PO SCH (21:00)
[2019-03-05] MEDS ORDERED: MULTIVITAMINS, THERA 1 EACH TAB PO SCH (21:00)
[2019-03-05] MEDS ORDERED: CHOLECALCIFEROL 1,000 UNIT TAB PO SCH (21:00)
[2019-03-05 21:51] VITALS: BMI 25.7
[2019-03-06 07:26] VITALS: RESP 16
[2019-03-06 08:04] LABS: Basophils % (A) 0 %; Eosinophils # (A) 0.1 k/uL (0-0.7); Eosinophils % (A) 3 %; HCT 37.7 % (34.0-46.0); HGB 12.7 gm/dL (11.4-16.0); Lymphocytes # (A) 1.3 k/uL (1.0-4.8); Lymphocytes % (A) 29 %; MCH 31.4 pg (25.0-35.0); MCHC 33.6 g/dL (31.0-37.0); MCV 93.4 fL (80.0-100.0); Mean Platelet Volume 6.3; Monocytes # (A) 0.3 k/uL (0-1.0); Monocytes % (A) 6 %; Neutrophils # (A) 2.6 k/uL (1.3-7.7); Neutrophils % (A) 57 %; Platelet Count 250 k/uL (150-450); RBC 4.04 m/uL (3.80-5.40); RDW 12.7 % (11.5-15.5); WBC 4.5 k/uL (3.8-10.6)
[2019-03-06 08:17] LABS: ALT 136 U/L (9-52); AST 66 U/L (14-36); African American GFR (CKD) >90 (>60 ml/min/1.73 sqM); Albumin 3.9 g/dL (3.5-5.0); Alkaline Phosphatase 136 U/L (38-126); Anion Gap 9 mmol/L; Blood Urea Nitrogen 8 mg/dL (7-17); Carbon Dioxide 28 mmol/L (22-30); Chloride 104 mmol/L (98-107); Glucose 100 mg/dL (74-99); Non-African American GFR(CKD) >90 (>60 ml/min/1.73 sqM); Potassium 4.5 mmol/L (3.5-5.1); Sodium 141 mmol/L (137-145); Total Bilirubin 0.4 mg/dL (0.2-1.3); Total Protein 6.9 g/dL (6.3-8.2)
[2019-03-06] MEDS: SODIUM CHLORIDE 0.9% 1,000 ML IV SCH (10:57)
--- NOTE | 2019-03-06 11:24 | XR ---
EXAMINATION TYPE: XR chest 2V DATE OF EXAM: 03/05/2019 COMPARISON: None INDICATION: Cough TECHNIQUE: Frontal and lateral views of the chest are obtained. FINDINGS: The heart size is normal. The pulmonary vasculature is normal. Consolidation in the right lower lobe. Lung bowman are otherwise clear.. IMPRESSION: 1. Right lower lobe consolidation compatible with pneumonia. Follow-up is recommended. 2. Preliminary results were provided by the on-call radiologist.
[2019-03-06 14:45] VITALS: BP 151/88; PULSE 71; TEMP 97.8
[2019-03-06] MEDS ORDERED: ENOXAPARIN 40 MG/0.4 ML SYRINGE SQ SCH (15:00)
[2019-03-06] MEDS ORDERED: AMOXIC-POT CLAV 500-125 MG 1 EACH TAB PO SCH (15:30)
[2019-03-06 20:03] LABS: Hepatitis A Antibody IgM Non-Reactive (Non-Reactive); Hepatitis B Core IgM Non-Reactive (Non-Reactive); Hepatitis B Surface Antigen Non-Reactive (Non-Reactive); Hepatitis C IgG Antibody Non-Reactive (Non-Reactive)
--- NOTE | 2019-03-07 12:19 | P.CONS ---
History of Present Illness - Reason for Consult Consult date: 03/06/19 Blood per rectum Requesting physician: Rony Pandya - Chief Complaint Diarrhea, blood per rectum - History of Present Illness 58-year-old female with a medical history significant for hyperlipidemia and bicuspid aortic valve who presented to the hospital with complaints of diarrhea and blood per rectum. She reports that earlier in the week she developed symptoms of an upper respiratory tract infection. However the following day she reports having multiple episodes of loose nonbloody stool. This continued into the next day when she began to see reddish colored stool. She denies any abdominal pain or cramping with the episode. She reports no further blood per rectum since presentation. She had stool testing which was negative for occult blood and stool testing which was negative for Clostridium difficile toxin. She did have a colonoscopy with Dr. Nicole in 12/2017 which was essentially normal. Hemoglobin on presentation 13.6 subsequently trended to 12.7 and stable. Review of Systems REVIEW OF SYSTEMS: CONSTITUTIONAL: Denies any fevers, chills, weight change or fatigue. CARDIOVASCULAR: Denies any chest pain, palpitations high or low blood pressures RESPIRATORY: Denies any shortness of breath, hemoptysis or cough. GENITOURINARY: No dysuria or hematuria. MUSCULOSKELETAL: No weakness reported. SKIN: Denies any new rashes or lesions, jaundice or pallor. PSYCHIATRIC: Denies any depression or anxiety. NEUROLOGY: Denies headache, denies any new focal deficits. EARS/NOSE/THROAT: No recent hearing change, congestion, nasal discharge or sore throat. EYES: No pain in eyes, discharge or change in vision. GASTROINTESTINAL: As per HPI. Past Medical History Past Medical History: Hyperlipidemia Additional Past Medical History / Comment(s): heart murmur, History of Any Multi-Drug Resistant Organisms: None Reported Past Surgical History: Adenoidectomy, Hysterectomy, Joint Replacement, Orthopedic Surgery, Tonsillectomy Additional Past Surgical History / Comment(s): arthroscopy rt knee, great saphenous vein surgery-augie, RT TKA 02/18/17 Past Anesthesia/Blood Transfusion Reactions: No Reported Reaction Past Psychological History: No Psychological Hx Reported Smoking Status: Never smoker Past Alcohol Use History: None Reported, Occasional Past Drug Use History: None Reported - Past Family History Mother Family Medical History: Cancer Additional Family Medical History / Comment(s): breast,bowel Medications and Allergies Home Medications Medication Instructions Recorded Confirmed Type Atorvastatin [Lipitor] 40 mg PO HS 02/12/17 03/05/19 History Cholecalciferol [Vitamin D3 (25 4,000 unit PO HS 02/12/17 03/05/19 History Mcg = 1000 Iu)] Multivitamins, Thera [Multivitamin 1 tab PO HS 03/05/19 03/05/19 History (formulary)] Amoxic-Pot Clav 500-125 mg 1 each PO BID #10 tab 03/06/19 Rx [Augmentin 500-125 mg] Allergies Allergy/AdvReac Type Severity Reaction Status Date / Time No Known Allergies Allergy Verified 03/05/19 18:23 Physical Exam Vitals: Vital Signs Temp Pulse Resp BP Pulse Ox 03/06/19 16:00 16 03/06/19 14:45 97.8 F 71 16 151/88 95 On physical examination, patient appears comfortable in no apparent distress. HEAD: Normocephalic, atraumatic. EYES: No scleral icterus. No conjunctival injection. MOUTH: No lesions, tongue midline. NECK: Trachea midline, no gross abnormalities. CHEST: Clear to auscultation with no wheezing or rhonchi appreciated. HEART: Regular rate and rhythm, systolic ejection murmur. ABDOMEN: Soft, obese. Bowel sounds are positive. No organomegaly. No guarding or rigidity. EXTREMITIES: No pedal edema. SKIN: No rashes, no jaundice. NEUROLOGIC: Alert and oriented x3. No focal deficits. Results CBC & Chem 7: 03/06/19 07:15 03/06/19 07:15 Labs: Microbiology - Last 24 Hours (Table) 03/06/19 00:01 Stool Culture - Preliminary Stool Staphylococcus aureus 03/05/19 19:50 Blood Culture - Preliminary Blood No Growth after 24 hours Assessment and Plan (1) Nausea vomiting and diarrhea Narrative/Plan: 50-year-old female presenting with symptoms of nausea, vomiting and diarrhea followed by hematochezia. Currently symptoms improved. Suspicion is for viral gastroenteritis. Colonoscopy is up-to-date with prior exam in 12/2017 which was essentially normal. Patient symptoms have improved currently reporting no bowel movements since presentation. Patient never had any abdominal pain associated with her symptoms. Status: Acute Code(s): R11.2 - NAUSEA WITH VOMITING, UNSPECIFIED; R19.7 - DIARRHEA, UNSPECIFIED SNOMED Code(s): 7334259 (2) Hematochezia Status: Acute Code(s): K92.1 - MELENA SNOMED Code(s): 238425780 Plan: Supportive care No antibiotic therapy required Recommend low fiber, low lactose diet for the next 10-14 days after acute viral gastroenteritis Continue to monitor stool output Thank you for allowing us to participate in the care of the patient Okay for discharge from gastroenterology standpoint
--- NOTE | 2019-03-07 21:38 | P.HPIM ---
History of Present Illness H&P Date: 03/06/19 Chief Complaint: Diarrhea and bloody stool History of presenting complaint: This is a very pleasant 58-year-old patient of Dr. Baum. 4-5 days ago patient started of with feeling chills, slight cough. Then she started having diarrhea. Does not normal pain. And a low-grade fever of 101.6. He also took some Pepto-Bismol. Went to see her family doctor. Was given erythromycin. There is no abdominal pain. Patient started getting tired worn out. Had laid on the couch. When he decided to come to the ER. Patient also noticed blood in the stools that became concerning to the patient. Checks x-ray did show pneumonic patch on the right side. Was started antibiotics IV fluids. To which she started feeling a bit better. Her was present with him. 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 . Physical examination: VITAL SIGNS: 98, 87, 20, 158/91, 99% room air GENERAL: BMI 25.8, sitting up, comfortable. EYES: Pupils equal. Conjunctiva normal. HEENT: External appearance of nose and ears normal, oral cavity slightly dry. NECK: JVD not raised; masses not palpable. HEART: First and second heart sounds are normal; no edema. LUNGS: Respiratory rate normal; some right basal faint crackles. ABDOMEN: Soft, nontender, liver spleen not palpable, no masses palpable. PSYCH: Alert and oriented x3; mood and affect normal. NEUROLOGICAL: Cranial nerves grossly intact; no facial asymmetry, power and sensation grossly intact. LYMPHATICS: No lymph nodes palpable in the axilla and neck INVESTIGATIONS, reviewed in the clinical context: White count 4.9 hemoglobin 13.6 potassium 4.0 AST 87 ALT 172 C. diff negative Chest x-ray film personally reviewed by me-right lower lobe infiltrate CT chest-patchy consolidation right lower lobe Assessment: -Right lower lobe pneumonia, consider gram-negative organism -Acute gastroenteritis could be associated with possible viral colitis. -Hyperlipidemia -Primary osteoarthritis Plan: Patient received IV fluids. Already feeling much better. Tolerating clear liquids. Up and about the room. We'll start the patient on Augmentin. Discussed the care in detail the patient . Question were answered. If patient continues to well. Keep her diet in. No further diarrhea. She could be discharged later today. Past Medical History Past Medical History: Hyperlipidemia Additional Past Medical History / Comment(s): heart murmur, History of Any Multi-Drug Resistant Organisms: None Reported Past Surgical History: Adenoidectomy, Hysterectomy, Joint Replacement, Orthopedic Surgery, Tonsillectomy Additional Past Surgical History / Comment(s): arthroscopy rt knee, great saphenous vein surgery-augie, RT TKA 02/18/17 Past Anesthesia/Blood Transfusion Reactions: No Reported Reaction Past Psychological History: No Psychological Hx Reported Smoking Status: Never smoker Past Alcohol Use History: None Reported, Occasional Past Drug Use History: None Reported - Past Family History Mother Family Medical History: Cancer Additional Family Medical History / Comment(s): breast,bowel Medications and Allergies Home Medications Medication Instructions Recorded Confirmed Type Atorvastatin [Lipitor] 40 mg PO HS 02/12/17 03/05/19 History Cholecalciferol [Vitamin D3 (25 4,000 unit PO HS 02/12/17 03/05/19 History Mcg = 1000 Iu)] Multivitamins, Thera [Multivitamin 1 tab PO HS 03/05/19 03/05/19 History (formulary)] Amoxic-Pot Clav 500-125 mg 1 each PO BID #10 tab 03/06/19 Rx [Augmentin 500-125 mg] Allergies Allergy/AdvReac Type Severity Reaction Status Date / Time No Known Allergies Allergy Verified 03/05/19 18:23 Physical Exam Vitals: Vital Signs Temp Pulse Pulse Resp BP BP Pulse Ox 03/06/19 07:00 97.9 F 64 16 129/79 96 03/06/19 01:40 98.4 F 73 18 127/68 94 L 03/05/19 22:14 98.0 F 76 18 133/80 96 03/05/19 19:00 68 18 155/93 98 03/05/19 15:01 98 F 87 20 158/91 99 Intake and Output 03/05/19 03/06/19 03/06/19 22:59 06:59 14:59 Other: Voiding Method Toilet # Voids 1 Weight 83.915 kg Results CBC & Chem 7: 03/06/19 07:15 03/06/19 07:15 Labs: Abnormal Lab Results - Last 24 Hours (Table) 03/05/19 03/05/19 03/06/19 Range/Units 15:47 15:47 07:15 Glucose 112 H 100 H (74-99) mg/dL AST 87 H 66 H (14-36) U/L ALT 172 H 136 H (9-52) U/L Alkaline Phosphatase 160 H 136 H (38-126) U/L Urine Protein Trace H (Negative) Urine Blood Trace H (Negative) Ur Squamous Epith Cells 11 H (0-4) /hpf Amorphous Sediment Rare H (None) /hpf Urine Bacteria Rare H (None) /hpf Urine Mucus Rare H (None) /hpf Thrombosis Risk Factor Assmnt - Choose All That Apply Each Factor Represents 1 point: Age 41-60 years Thrombosis Risk Factor Assessment Total Risk Factor Score: 1 Thrombosis Risk Factor Assessment Level: Low Risk
--- NOTE | 2019-03-07 21:48 | P.DS ---
Providers Date of admission: 03/05/19 20:11 Expected date of discharge: 03/07/19 Attending physician: Rony Pandya Consults: 03/05/19 20:08 Consult Physician Urgent Consulting Provider: Grey Abdi Reason/Comments: acute hematochezia Do you want consulting provider notified?: Yes, Notify in am Primary care physician: Capo Baum Hospital Course: Chief Complaint: Diarrhea and bloody stool, cough Hospital course: This is a very pleasant 58-year-old patient of Dr. Baum. 4-5 days ago patient started of with feeling chills, slight cough. Then she started having diarrhea. Does not normal pain. And a low-grade fever of 101.6. He also took some Pepto-Bismol. Went to see her family doctor. Was given erythromycin. There is no abdominal pain. Patient started getting tired worn out. Had laid on the couch. When he decided to come to the ER. Patient also noticed blood in the stools that became concerning to the patient. Checks x-ray did show pneumonic patch on the right side. Was started antibiotics IV fluids. To which she started feeling a bit better. Her was present with him. Patient is tolerating a diet. Up and about. No fever no white count. Cough is present. Patient being discharged on Augmentin. Consultation: Dr. Mendes from GI Physical examination: VITAL SIGNS: 98.4, 73, 18, 127/68, 94% room air GENERAL: Sitting up, comfortable. EYES: Pupils equal. Conjunctiva normal. HEENT: External appearance of nose and ears normal, oral cavity slightly dry. NECK: JVD not raised; masses not palpable. HEART: First and second heart sounds are normal; no edema. LUNGS: Respiratory rate normal; some right basal faint crackles. ABDOMEN: Soft, nontender, liver spleen not palpable, no masses palpable. INVESTIGATIONS, reviewed in the clinical context: White count 4.9 hemoglobin 13.6 potassium 4.0 AST 87 ALT 172 C. diff negative Chest x-ray film personally reviewed by me-right lower lobe infiltrate CT chest-patchy consolidation right lower lobe Discharge diagnosis: -Right lower lobe pneumonia, consider gram-negative organism -Acute gastroenteritis could be associated with possible viral colitis. -Hyperlipidemia -Primary osteoarthritis -Nonspecific elevated liver enzymes. Could be nonrelated to the presentation. For further workup as an outpatient. Disposition: Home Patient Condition at Discharge: Stable Plan - Discharge Summary New Discharge Prescriptions: New Amoxic-Pot Clav 500-125 mg [Augmentin 500-125 mg] 1 each PO BID #10 tab Continue Cholecalciferol [Vitamin D3 (25 Mcg = 1000 Iu)] 4,000 unit PO HS Atorvastatin [Lipitor] 40 mg PO HS Multivitamins, Thera [Multivitamin (formulary)] 1 tab PO HS Discharge Medication List Atorvastatin [Lipitor] 40 mg PO HS 02/12/17 [History] Cholecalciferol [Vitamin D3 (25 Mcg = 1000 Iu)] 4,000 unit PO HS 02/12/17 [History] Multivitamins, Thera [Multivitamin (formulary)] 1 tab PO HS 03/05/19 [History] Amoxic-Pot Clav 500-125 mg [Augmentin 500-125 mg] 1 each PO BID #10 tab 03/06/19 [Rx] Follow up Appointment(s)/Referral(s): Capo Baum MD [Primary Care Provider] - 1-2 days Patient Instructions/Handouts: Low Fiber Diet (DC), Community Acquired Pneu monia (DC)
== END 2019-03-06 19:09 ==
LOC: EC 14:54 → 4SSUR 20:11
PROVIDERS: ADMIT Hospitalist; ATTEND Hospitalist
DX: J15.9 Unspecified bacterial pneumonia (principal); K52.9 Noninfective gastroenteritis and colitis, unspecified; E78.5 Hyperlipidemia, unspecified; M19.91 Primary osteoarthritis, unspecified site; Q23.1 Congenital insufficiency of aortic valve; R74.8 Abnormal levels of other serum enzymes; Z79.899 Other long term (current) drug therapy; Z90.710 Acquired absence of both cervix and uterus; Z96.651 Presence of right artificial knee joint; Z90.49 Acquired absence of other specified parts of digestive tract; Z80.3 Family history of malignant neoplasm of breast; Z80.0 Family history of malignant neoplasm of digestive organs
CPT/HCPCS: 96361 ×3; 96365; 96366; 96375; 99285; 36415; 80053 ×2; 80074; 82150; 83605; 83690; 85025 ×2; 85610; 85730; 82272; 81001; 87040; 87324; 87045; 83630; 87046; 71046; 74177; G0378 ×2; J0456; J0696; Q9967

== ENCOUNTER → 2020-07-12 | Outpatient (CLI) | payer BC ==
--- NOTE | 2020-07-12 12:01 | BD ---
EXAMINATION TYPE: Axial Bone Density DATE OF EXAM: 07/12/2020 COMPARISON: NONE CLINICAL HISTORY: Postmenopausal female Height: 5 FT 8 IN Weight: 187 pounds FRAX RISK QUESTIONS: Alcohol (3 or more units per day): NO Family History (Parent hip fracture): NO Glucocorticoids (More than 3mos): NO (Ex: prednisone, prednisolone, methylprednisolone, dexamethasone, and hydrocortisone). History of Fracture in Adulthood: YES Secondary Osteoporosis: 1. Type 1 Diabetes: NO 2. Hyperthyroidism: NO 3. Menopause before 45: NO 4. Malnutrition: NO 5. Chronic liver disease: NO Rheumatoid Arthritis: NO Current Tobacco Use: NO RISK FACTORS HISTORY OF: Family History of Osteoporosis: NO Active: YES Diet low in dairy products/other sources of calcium: NO Postmenopausal woman: AGE 55 Take estrogen and/or progesterone medications: NONE Lost more than 2 inches in height since high school: YES MEDICATIONS: Additional Medications: ATORVASTATIN, Additional History: EXAM MEASUREMENTS: Bone mineral densitometry was performed using the [employer] System. Bone mineral density as measured about the Lumbar spine is: ----- L1-L4(G/cm2): 1.142 T Score Values are as follows: ----- L2: -0.6 ----- L3: 0.2 ----- L4: -0.5 ----- L1-L4: -0.3 BASELINE Bone mineral density about the R hip (g/cm2): 0.838 Bone mineral density about the L hip (g/cm2): 0.918 T Score values are as follows: -----R Neck: -1.4 -----L Neck: -0.9 -----R Total: -1.9 -----L Total: -0.9 BASELINE IMPRESSION: Osteopenia (T Score between -2.5 and -1) in the right hip. There is slightly increased risk of fracture and the patient may be considered for treatment. Re-Screen 2-5 years. NOTE: T-SCORE=SD OF THE YOUNG ADULT MEAN.
--- NOTE | 2020-07-13 11:15 | MM ---
Reason for exam: screening (asymptomatic). Last mammogram was performed 1 year and 6 months ago. History: Patient is postmenopausal. Family history of breast cancer in maternal aunt and premenopausal breast cancer in mother at age 59. Benign US left guided VAD of the left breast, June 20, 2009. Benign US right guided VAD of the right breast, June 20, 2009. Benign right US cyst aspiration of the right breast, November 26, 2008. Benign US right guided VAD of the right breast, November 26, 2008. Benign US left CoreBiopsy of both breasts, August 18, 2008. Benign cyst aspiration of the left breast, 2000. Took hormonal contraceptives for 5 years beginning at age 24. Physical Findings: A clinical breast exam by your physician is recommended on an annual basis and results should be correlated with mammographic findings. MG 3D Screening Mammo W/Cad Bilateral CC and MLO view(s) were taken. Prior study comparison: January 08, 2019, bilateral MG 3d screening mammo w/cad. December 19, 2017, bilateral MG 3d screening mammo w/cad. The breast tissue is heterogeneously dense. This may lower the sensitivity of mammography. No significant changes when compared with prior studies. ASSESSMENT: Benign, BI-RAD 2 RECOMMENDATION: Routine screening mammogram of both breasts in 1 year.
== END | disposition home or self-care (01) ==
LOC: RADMAMWWP 08:49
PROVIDERS: ATTEND Obstetrics & Gynecology
DX: Z12.31 Encounter for screening mammogram for malignant neoplasm of breast (principal); M85.851 Other specified disorders of bone density and structure, right thigh; Z80.3 Family history of malignant neoplasm of breast
CPT/HCPCS: 77063; 77067; 77080

== ENCOUNTER → 2021-07-13 | Outpatient (CLI) | payer BC ==
--- NOTE | 2021-07-17 09:24 | MM ---
Reason for exam: screening (asymptomatic). Last mammogram was performed 1 year ago. History: Patient is postmenopausal. Family history of breast cancer in maternal aunt and premenopausal breast cancer in mother at age 59. Benign US left guided VAD of the left breast, June 20, 2009. Benign US right guided VAD of the right breast, June 20, 2009. Benign right US cyst aspiration of the right breast, November 26, 2008. Benign US right guided VAD of the right breast, November 26, 2008. Benign US left CoreBiopsy of both breasts, August 18, 2008. Benign cyst aspiration of the left breast, 2000. Took hormonal contraceptives for 5 years beginning at age 24. Physical Findings: A clinical breast exam by your physician is recommended on an annual basis and results should be correlated with mammographic findings. MG 3D Screening Mammo W/Cad Bilateral CC and MLO view(s) were taken. XCCL view(s) were taken of the left breast. Prior study comparison: July 12, 2020, bilateral MG 3d screening mammo w/cad. January 08, 2019, bilateral MG 3d screening mammo w/cad. The breast tissue is heterogeneously dense. This may lower the sensitivity of mammography. Previous mammotome biopsy in the right and left breast. No significant changes when compared with prior studies. ASSESSMENT: Benign, BI-RAD 2 RECOMMENDATION: Routine screening mammogram of both breasts in 1 year.
== END | disposition home or self-care (01) ==
LOC: RADMAMWWP 12:47
PROVIDERS: ATTEND Obstetrics & Gynecology
DX: Z12.31 Encounter for screening mammogram for malignant neoplasm of breast (principal); Z80.3 Family history of malignant neoplasm of breast; Z78.0 Asymptomatic menopausal state
CPT/HCPCS: 77063; 77067

== ENCOUNTER 2021-10-02 06:28 | Emergency (ER) | payer BC ==
[2021-10-02 06:36] VITALS: RESP 16
[2021-10-02] MEDS ORDERED: SODIUM CHLORIDE 0.9% 2,000 ML IV STA (06:52)
[2021-10-02] MEDS ORDERED: DIPHENOX-ATROP 2.5-0.025 MG 1 EACH TAB PO STA (06:53)
[2021-10-02 07:32] LABS: Basophils % (A) 0 %; Eosinophils % (A) 0 %; HCT 44.2 % (34.0-46.0); HGB 14.4 gm/dL (11.4-16.0); Lymphocytes # (A) 0.4 k/uL (1.0-4.8); Lymphocytes % (A) 4 %; MCH 30.6 pg (25.0-35.0); MCHC 32.6 g/dL (31.0-37.0); Mean Platelet Volume 8.3; Monocytes # (A) 0.4 k/uL (0-1.0); Monocytes % (A) 4 %; Neutrophils # (A) 8.9 k/uL (1.3-7.7); Neutrophils % (A) 90 %; Platelet Count 167 k/uL (150-450); RBC 4.71 m/uL (3.80-5.40); RDW 12.6 % (11.5-15.5); WBC 9.9 k/uL (3.8-10.6)
[2021-10-02 07:33] LABS: ALT 34 U/L (4-34); African American GFR (CKD) >90 (>60 ml/min/1.73 sqM); Albumin 4.3 g/dL (3.5-5.0); Amylase 45 U/L (30-110); Anion Gap 11 mmol/L; Blood Urea Nitrogen 14 mg/dL (7-17); Calcium 8.7 mg/dL (8.4-10.2); Carbon Dioxide 19 mmol/L (22-30); Chloride 103 mmol/L (98-107); Glucose 116 mg/dL (74-99); Lipase 39 U/L (23-300); Non-African American GFR(CKD) 80 (>60 ml/min/1.73 sqM); Sodium 133 mmol/L (137-145); Total Bilirubin 0.9 mg/dL (0.2-1.3); Total Protein 7.4 g/dL (6.3-8.2)
[2021-10-02 07:37] LABS: AST 33 U/L (14-36); Alkaline Phosphatase 77 U/L (38-126); Potassium 4.1 mmol/L (3.5-5.1)
--- NOTE | 2021-10-02 07:41 | ED ---
Abdominal Pain HPI - General Chief Complaint: Abdominal Pain Stated Complaint: near syncope, flu like symptoms Time Seen by Provider: 10/02/21 06:40 Source: patient, RN notes reviewed Mode of arrival: wheelchair Limitations: no limitations - History of Present Illness Initial Comments: 61-year-old female presents emergency Department with chief complaint of diarrhea. Patient states his been going on for last 24 hours states she's having severe watery diarrhea. Patient states that she's had no recent traveling no sick contacts denies any recent antibiotic use no history of C. diff. Patient states when she gets sick she has issues with her bowels in which she feels dehydrated. Patient had minimal nausea no vomiting no fevers or chills no localized abdominal pain no melena or hematochezia. Patient denies any chest pain shortness breath other complaints. - Related Data Home Medications Medication Instructions Recorded Confirmed Atorvastatin [Lipitor] 40 mg PO HS 02/12/17 10/02/21 Cholecalciferol [Vitamin D3 (25 100 mcg PO DAILY 10/02/21 10/02/21 Mcg = 1000 Iu)] Multivit-Min/Iron/Folic/Lutein 1 tab PO HS 10/02/21 10/02/21 [Centrum Silver Women Tablet] lisinopriL [Zestril] 2.5 mg PO DAILY 10/02/21 10/02/21 Allergies Allergy/AdvReac Type Severity Reaction Status Date / Time No Known Allergies Allergy Verified 10/02/21 09:05 Review of Systems ROS Statement: Those systems with pertinent positive or pertinent negative responses have been documented in the HPI. ROS Other: All systems not noted in ROS Statement are negative. Past Medical History Past Medical History: Hyperlipidemia Additional Past Medical History / Comment(s): heart murmur, aortic valve repalcement needed History of Any Multi-Drug Resistant Organisms: None Reported Past Surgical History: Adenoidectomy, Hysterectomy, Joint Replacement, Orthopedic Surgery, Tonsillectomy Additional Past Surgical History / Comment(s): arthroscopy rt knee, great saphenous vein surgery-augie, RT TKA 02/18/17 Past Anesthesia/Blood Transfusion Reactions: No Reported Reaction Past Psychological History: No Psychological Hx Reported Past Alcohol Use History: None Reported, Occasional Past Drug Use History: None Reported - Past Family History Mother Family Medical History: Cancer Additional Family Medical History / Comment(s): breast,bowel General Exam Limitations: no limitations General appearance: alert, in no apparent distress Head exam: Present: atraumatic, normocephalic, normal inspection Eye exam: Present: normal appearance, PERRL, EOMI. Absent: scleral icterus, conjunctival injection, periorbital swelling ENT exam: Present: normal exam, normal oropharynx, mucous membranes moist Neck exam: Present: normal inspection, full ROM. Absent: tenderness, meningismus, lymphadenopathy Respiratory exam: Present: normal lung sounds bilaterally. Absent: respiratory distress, wheezes, rales, rhonchi, stridor Cardiovascular Exam: Present: regular rate, normal rhythm, normal heart sounds. Absent: systolic murmur, diastolic murmur, rubs, gallop, clicks GI/Abdominal exam: Present: soft, normal bowel sounds. Absent: distended, tenderness, guarding, rebound, rigid Neurological exam: Present: alert, oriented X3 Course Vital Signs 10/02/21 10/02/21 06:34 08:00 Temperature 98.9 F 98.7 F Pulse Rate 85 71 Respiratory 16 16 Rate Blood Pressure 137/80 123/67 O2 Sat by Pulse 94 L 100 Oximetry Medical Decision Making - Medical Decision Making 61-year-old female presented from it for diarrhea. Labs unremarkable C. diff is negative. has similar symptoms. This most likely just enteritis. Patient will be discharged in stable condition return parameters discussed. - Lab Data Result diagrams: 10/02/21 07:10 10/02/21 07:10 Lab Results 10/02/21 10/02/21 10/02/21 Range/Units 07:10 07:10 07:10 WBC 9.9 (3.8-10.6) k/uL RBC 4.71 (3.80-5.40) m/uL Hgb 14.4 (11.4-16.0) gm/dL Hct 44.2 (34.0-46.0) % MCV 94.0 (80.0-100.0) fL MCH 30.6 (25.0-35.0) pg MCHC 32.6 (31.0-37.0) g/dL RDW 12.6 (11.5-15.5) % Plt Count 167 (150-450) k/uL MPV 8.3 Neutrophils % 90 % Lymphocytes % 4 % Monocytes % 4 % Eosinophils % 0 % Basophils % 0 % Neutrophils # 8.9 H (1.3-7.7) k/uL Lymphocytes # 0.4 L (1.0-4.8) k/uL Monocytes # 0.4 (0-1.0) k/uL Eosinophils # 0.0 (0-0.7) k/uL Basophils # 0.0 (0-0.2) k/uL Sodium 133 L (137-145) mmol/L Potassium 4.1 (3.5-5.1) mmol/L Chloride 103 (98-107) mmol/L Carbon Dioxide 19 L (22-30) mmol/L Anion Gap 11 mmol/L BUN 14 (7-17) mg/dL Creatinine 0.80 (0.52-1.04) mg/dL Est GFR (CKD-EPI)AfAm >90 (>60 ml/min/1.73 sqM) Est GFR (CKD-EPI)NonAf 80 (>60 ml/min/1.73 sqM) Glucose 116 H (74-99) mg/dL Plasma Lactic Acid Sachin (0.7-2.0) mmol/L Calcium 8.7 (8.4-10.2) mg/dL Total Bilirubin 0.9 (0.2-1.3) mg/dL AST 33 (14-36) U/L ALT 34 (4-34) U/L Alkaline Phosphatase 77 (38-126) U/L Total Protein 7.4 (6.3-8.2) g/dL Albumin 4.3 (3.5-5.0) g/dL Amylase 45 (30-110) U/L Lipase 39 (23-300) U/L Urine Color Yellow Urine Appearance Clear (Clear) Urine pH 6.0 (5.0-8.0) Ur Specific Street 1.026 (1.001-1.035) Urine Protein Trace H (Negative) Urine Glucose (UA) Negative (Negative) Urine Ketones Negative (Negative) Urine Blood Negative (Negative) Urine Nitrite Negative (Negative) Urine Bilirubin Negative (Negative) Urine Urobilinogen <2.0 (<2.0) mg/dL Ur Leukocyte Esterase Negative (Negative) C. difficile (EIA) Intrp (Negative) 10/02/21 10/02/21 Range/Units 07:10 07:39 WBC (3.8-10.6) k/uL RBC (3.80-5.40) m/uL Hgb (11.4-16.0) gm/dL Hct (34.0-46.0) % MCV (80.0-100.0) fL MCH (25.0-35.0) pg MCHC (31.0-37.0) g/dL RDW (11.5-15.5) % Plt Count (150-450) k/uL MPV Neutrophils % % Lymphocytes % % Monocytes % % Eosinophils % % Basophils % % Neutrophils # (1.3-7.7) k/uL Lymphocytes # (1.0-4.8) k/uL Monocytes # (0-1.0) k/uL Eosinophils # (0-0.7) k/uL Basophils # (0-0.2) k/uL Sodium (137-145) mmol/L Potassium (3.5-5.1) mmol/L Chloride (98-107) mmol/L Carbon Dioxide (22-30) mmol/L Anion Gap mmol/L BUN (7-17) mg/dL Creatinine (0.52-1.04) mg/dL Est GFR (CKD-EPI)AfAm (>60 ml/min/1.73 sqM) Est GFR (CKD-EPI)NonAf (>60 ml/min/1.73 sqM) Glucose (74-99) mg/dL Plasma Lactic Acid Sachin 0.8 (0.7-2.0) mmol/L Calcium (8.4-10.2) mg/dL Total Bilirubin (0.2-1.3) mg/dL AST (14-36) U/L ALT (4-34) U/L Alkaline Phosphatase (38-126) U/L Total Protein (6.3-8.2) g/dL Albumin (3.5-5.0) g/dL Amylase (30-110) U/L Lipase (23-300) U/L Urine Color Urine Appearance (Clear) Urine pH (5.0-8.0) Ur Specific Street (1.001-1.035) Urine Protein (Negative) Urine Glucose (UA) (Negative) Urine Ketones (Negative) Urine Blood (Negative) Urine Nitrite (Negative) Urine Bilirubin (Negative) Urine Urobilinogen (<2.0) mg/dL Ur Leukocyte Esterase (Negative) C. difficile (EIA) Intrp Negative (Negative) Disposition Clinical Impression: Diarrhea, Enteritis Disposition: HOME SELF-CARE Condition: Stable Instructions (If sedation given, give patient instructions): Acute Diarrhea (ED) Additional Instructions: Please return to the Emergency Department if symptoms worsen or any other concerns. Is patient prescribed a controlled substance at d/c from ED?: No Referrals: Capo Baum MD [Primary Care Provider] - 1-2 days Time of Disposition: 10:51
[2021-10-02 07:44] LABS: Appearance,Urine Clear (Clear); Bilirubin,Urine Negative (Negative); Blood,Urine Negative (Negative); Color,Urine Yellow; Glucose,Urine (UA) Negative (Negative); Ketones,Urine Negative (Negative); Leukocyte Esterase,Urine Negative (Negative); Nitrite,Urine Negative (Negative); Protein,Urine Trace (Negative); Specific Gravity,Urine 1.026 (1.001-1.035); Urobilinogen,Urine <2.0 mg/dL (<2.0)
[2021-10-02 08:02] VITALS: BP 123/67; TEMP 98.7
[2021-10-02] MEDS ORDERED: DIPHENOX-ATROP STARTER PACK 8 TAB BTL PO STA (10:49)
[2021-10-02 11:18] VITALS: PULSE 84
== END 2021-10-02 11:18 | disposition home or self-care (01) ==
LOC: EC 06:28
DX: K52.9 Noninfective gastroenteritis and colitis, unspecified (principal)
CPT/HCPCS: 36415; 80053; 81003; 82150; 83605; 83690; 85025; 87324; 96360; 99284

== ENCOUNTER → 2022-09-17 | Outpatient (CLI) | payer BC ==
--- NOTE | 2022-09-17 14:39 | US ---
EXAMINATION TYPE: US carotid duplex BILAT DATE OF EXAM: 09/17/2022 COMPARISON: NONE CLINICAL INDICATION: Female, 62 years old with history of R09.89 OT SYMPTOMS AND SIGNS INVOLVING THE CIRC A; TECHNIQUE: Carotid duplex ultrasound examination. Indirect Doppler criteria was utilized. FINDINGS: EXAM MEASUREMENTS: RIGHT: Peak Systolic Velocity (PSV) cm/sec ----- Right CCA: 80.9 ----- Right ICA: 113.4 ----- Right ECA: 84.2 ICA/CCA ratio: 1.4 RIGHT: End Diastole cm/sec ----- Right CCA: 24.8 ----- Right ICA: 47.4 ----- Right ECA: 20.4 LEFT: Peak Systolic Velocity (PSV) cm/sec ----- Left CCA: 67.7 ----- Left ICA: 109.5 ----- Left ECA: 105.6 ICA/CCA ratio: 1.6 LEFT: End Diastole cm/sec ----- Left CCA: 21.5 ----- Left ICA: 46.1 ----- Left ECA: 20.2 VERTEBRALS (direction of flow): Right Vertebral: Antegrade Left Vertebral: Antegrade Rhythm: Normal No significant stenosis IMPRESSION: No evidence for hemodynamically significant stenosis Criteria for Assigning % of Stenosis / Diameter reduction (Estimation based on the indirect measurements of the internal carotid artery velocities (ICA PSV). 1. Normal (no stenosis)=ICA PSV < 125 cm/s: ratio < 2.0: ICA EDV<40 cm/s. 2. Less than 50% stenosis=ICA PSV < 125 cm/s: ratio < 2.0: ICA EDV<40 cm/s. 3. 50 to 69% stenosis=ICA PSV of 125 to 230 cm/s: ration 2.0 ? 4.0: ICA EDV 40-100 cm/s. 4. Greater than 70% stenosis to near occlusion= ICA PSV > 230 cm/s: ratio > 4.0: ICA EDV > 100 cm/s. 5. Near occlusion= ICA PSV velocities may be low or undetectable: variable ratio and ICA EDV. 6. Total occlusion=unable to detect flow.
== END | disposition home or self-care (01) ==
LOC: RADUSWWP 13:22
PROVIDERS: ATTEND Family Medicine
DX: R09.89 Other specified symptoms and signs involving the circulatory and respiratory systems (principal)
CPT/HCPCS: 93880

== ENCOUNTER 2023-03-22 10:27 | Day surgery (SDC) | payer BC ==
[2023-03-20 11:25] VITALS: BMI 26.6
[~2023-03-22 10:27] MED LIST changes: +LIDOCAINE 1% (10MG/ML) FOR IV START INTRADERMA PRN; -LIDOCAINE 1% 20 ML VIAL (10MG/ML) FOR IV START INTRADERMA PRN; -PROPOFOL 10 MG/ML 20 ML VIAL IV ONE
[2023-03-22 11:04] VITALS: TEMP 97.2
[2023-03-22] MEDS ORDERED: PROPOFOL 10 MG/ML 20 ML VIAL IV ONE (11:34)
--- NOTE | 2023-03-22 11:49 | P.PCN ---
Date of Procedure: 03/22/23 Procedure(s) Performed: BRIEF HISTORY: Patient is a 62-year-old pleasant female scheduled for an elective colonoscopy as a part of screening for colon cancer and family history of colon cancer. Her sister was diagnosed with colon cancer at age 60 and her mother at age 37. PROCEDURE PERFORMED: Colonoscopy. PREOPERATIVE DIAGNOSIS: Screening for colon cancer and family history of colon cancer. IV sedation per Anesthesia. PROCEDURE: After informed consent was obtained, the patient, was brought into the endoscopy unit. IV sedation was administered by Anesthesia under continuous monitoring. Digital rectal examination was normal. Initially the Olympus CF-160 flexible video colonoscope was then inserted in the rectum, gradually advanced into the cecum without any difficulty. Careful examination was performed as the scope was gradually being withdrawn. Ileocecal valve and the appendiceal orifice were visualized and appeared normal. Prep was excellent. Mucosa of the cecum, ascending colon, transverse colon, descending colon, sigmoid colon, and rectum appeared normal. Scattered sigmoid diverticulosis Retroflexion was performed in the rectum and no lesions were seen. The patient tolerated the procedure well. IMPRESSION: Normal-appearing colon from rectum to cecum with no evidence of colorectal neoplasia Scattered sigmoid diverticula. RECOMMENDATIONS: Findings of this examination were discussed with the patient as well as a family. She was advised to have a repeat screening colonoscopy every 5 years because of the family history of colon cancer..
[2023-03-22 12:11] VITALS: RESP 16
[2023-03-22 12:30] VITALS: BP 125/77; PULSE 68
== END 2023-03-22 12:33 | disposition home or self-care (01) ==
LOC: ORWHC2ENDO 10:27
PROVIDERS: ATTEND Internal Medicine Gastroenterology
DX: Z12.11 Encounter for screening for malignant neoplasm of colon (principal); K57.30 Diverticulosis of large intestine without perforation or abscess without bleeding; I10 Essential (primary) hypertension; E78.5 Hyperlipidemia, unspecified; I25.10 Atherosclerotic heart disease of native coronary artery without angina pectoris; Z80.0 Family history of malignant neoplasm of digestive organs; Z79.811 Long term (current) use of aromatase inhibitors; Z79.899 Other long term (current) drug therapy
CPT/HCPCS: 45378; J2704

== ENCOUNTER → 2023-07-17 | Outpatient (CLI) | payer BC ==
--- NOTE | 2023-07-18 15:16 | MM ---
Reason for Exam: Screening (asymptomatic). Last screening mammogram was performed 12 month(s) ago. Patient History: Menarche at age 17. First Full-Term at age 26. Hysterectomy at age 40. Postmenopausal. Hormonal Contraceptives, starting at age 24 for 5 years. 2000, Benign Cyst Aspiration on the left side. 06/20/2009, Benign Core Biopsy on the left side. 06/20/2009, Benign Core Biopsy on the right side. 11/26/2008, Benign Cyst Aspiration on the right side. 11/26/2008, Benign Core Biopsy on the right side. 08/18/2008, Bilateral Benign Core Biopsy. Maternal aunt had breast cancer, age 68. Niece had breast cancer, age 30. Mother had breast cancer, age 59. Sister had ovarian cancer, age 64. Risk Values: Tatiana 5 year model risk: 4.1%. NCI Lifetime model risk: 17.5%. Prior Study Comparison: 07/12/2020 Bilateral Screening Mammogram, [facility]. 07/13/2021 Bilateral Screening Mammogram, [facility]. 07/16/2022 Bilateral MG 3D screening mammo w/cad, [facility]. Tissue Density: The breast tissue is heterogeneously dense. This may lower the sensitivity of mammography. Findings: Analyzed By CAD. Right breast biopsy clip. There is no suspicious group of microcalcifications or new suspicious mass. Benign-appearing calcifications bilaterally. Overall Assessment: Benign, BI-RAD 2 Management: Screening Mammogram of both breasts in [address] [facility] will attempt to contact patient to return for supplemental views and ultrasound if indicated. Patient should continue monthly self-breast exams. A clinical breast exam by your physician is recommended on an annual basis. This exam should not preclude additional follow-up of suspicious palpable abnormalities. Note on Tatiana scores and lifetime risk: 1. A Tatiana score greater than 3% is considered moderate risk. If this is the case, consider specialist referral to assess eligibility for a risk reducing agent. 2. If overall lifetime risk for the development of breast cancer is 20% or higher, the patient may qualify for future screening with alternating mammogram and breast MRI. Electronically signed and approved by: Norman Mann DO
== END | disposition home or self-care (01) ==
LOC: RADMAMWWP 10:33
PROVIDERS: ATTEND Obstetrics & Gynecology
DX: Z12.31 Encounter for screening mammogram for malignant neoplasm of breast (principal); Z80.3 Family history of malignant neoplasm of breast; Z78.0 Asymptomatic menopausal state
CPT/HCPCS: 77063; 77067